=== PATIENT | female | born 1975 | race Caucasian/White ===

== ENCOUNTER 2018-09-07 08:02 | Day surgery (SDC) | payer OTHER ==
[~2018-09-07] VITALS: Ht 172.7 cm; Wt 73.5 kg
[2018-09-07] MEDS ORDERED: ONDANSETRON HCL 4 MG/2 ML VIAL IVP PRN ×2 (11:15→11:45)
[2018-09-07] MEDS ORDERED: fentaNYL CITRATE/PF 100 MCG/2 ML AMP IVP PRN ×2 (11:15)
[2018-09-07] MEDS ORDERED: KETOROLAC TROMETHAMINE 30 MG VIAL IVP PRN (11:15)
[2018-09-07] MEDS ORDERED: KETOROLAC TROMETHAMINE 30 MG VIAL ONE (11:45)
[2018-09-07] MEDS ORDERED: ONDANSETRON HCL 4 MG/2 ML VIAL ONE (11:45)
[2018-09-07] MEDS ORDERED: LR 1,000 ML IV.SOLN IV ONE (11:45)
[2018-09-07] MEDS ORDERED: SEVOFLURANE 15 MIN GAS INH ONE (11:45)
[2018-09-07] MEDS ORDERED: PROMETHAZINE HCL 25 MG/ML AMP IM PRN ×2 (11:45)
[2018-09-07] MEDS ORDERED: PROPOFOL 200MG/ 20ML VIAL (DIPRIVAN) IV ONE (11:45)
[2018-09-07] MEDS ORDERED: HYDROmorphone 2 MG TAB PO PRN (11:45)
[2018-09-07] MEDS ORDERED: MIDAZOLAM HCL 5 MG/ML VIAL (VERSED) IV ONE (11:45)
[2018-09-07] MEDS ORDERED: OXYCODONE/ACETAMINOPHEN 5-325 TABLET PO PRN (11:45)
[2018-09-07] MEDS ORDERED: fentaNYL CITRATE/PF 100 MCG/2 ML AMP ONE (11:45)
[2018-09-07 14:06] VITALS: BP_SYST 96
== END 2018-09-07 14:00 | disposition home or self-care (01) ==
LOC: SDS 08:02 → SMU 08:03 → SDS 14:00
PROVIDERS: ATTEND Obstetrics & Gynecology
DX: N84.0 Polyp of corpus uteri (principal); N90.89 Other specified noninflammatory disorders of vulva and perineum; L91.8 Other hypertrophic disorders of the skin; D22.71 Melanocytic nevi of right lower limb, including hip; Z80.3 Family history of malignant neoplasm of breast; Z80.1 Family history of malignant neoplasm of trachea, bronchus and lung; Z88.2 Allergy status to sulfonamides
CPT/HCPCS: 11200; 36415; 58558; 86886; 86900; 86901; 88304; 88305; C1819; J1885; J2250; J2405; J2704; J3010; J7120